=== PATIENT | male | born 1970 | race Caucasian/White ===

== ENCOUNTER 2023-10-23 17:23 | Inpatient (IN) | payer BC, MEDICAID, SELFPAY ==
[2023-10-23 17:26] VITALS: BP 132/85; PULSE 131; RESP 18; TEMP 36.2; O2SAT 97; BMI 26.5
--- NOTE | 2023-10-23 18:04 | EDS_ITS ---
HPI History of Present Illness Chief Complaint: ETOH Intox Narrative Narrative: 53-year-old male presents for detox from alcohol. Last drink was about an hour prior to arrival. He had his old employer bring him here. He states that he drinks as much as he can, whether be 1/5 of liquor or beer. He denies any suicidal ideation. He states his last detox was approximately 3 years ago. He drinks daily. He denies any somatic symptoms. No chest pain or shortness of breath, no nausea or vomiting. He states he talked to Fe with 180 and presents for detox from alcohol. PENDING SALE TO [facility] Home Medications NK 10/23/23 [History Last Taken Unknown] Allergy/AdvReac Type Severity Reaction Status Date / Time No Known Allergies Allergy Verified 10/23/23 17:27 ROS ROS ED ROS Narrative Constitutional: No fever, no chills. HEENT: No sore throat. No neck pain. No loss of vision. No rhinorrhea. Cardiovascular: No chest pain. No palpitations. No pedal edema. Respiratory: No cough, no shortness of breath. Abdominal: No abdominal pain. No nausea. No vomiting. Genitourinary: No dysuria. No hematuria. Musculoskeletal: No myalgias. No arthralgias. Neurologic: No headaches. No dizziness. No lightheadedness. Skin: Questionable psoriatic rash on the left arm/hand. No change in color. Psychiatric: No depression. No anxiety. Wants detox from alcohol. EXAM Physical Exam Narrative Exam Narrative: Afebrile. Vital signs noted. HEENT: Normocephalic. Atraumatic. PERRL, EOMI. Neck soft and supple. No point tenderness or step off. Cardiovascular: Positive tachycardia no murmurs, rubs, or gallops appreciated. Respiratory: No tachypnea. Lungs clear to auscultation bilaterally. Gastrointestinal: Abdomen soft, nontender, with normoactive bowel sounds. No rebound or guarding. Neurological: Awake. Alert. Nonfocal, nonlateralizing. Skin: No rash. Normal color. No pallor. No gooseflesh. Musculoskeletal: No pedal edema. Full range of motion extremities. Const Vital Signs: 10/23/23 17:26 10/23/23 18:25 Temperature 97.1 F L Temperature Source Temporal Pulse Rate 131 H 111 H Respiratory Rate 18 16 Blood Pressure 132/85 H 109/78 Blood Pressure Mean 100 88 Pulse Ox 97 94 Oxygen Delivery Method Room Air Room Air MDM MDM MDM Narrative Medical decision making narrative: I have low concern for acute alcohol withdrawal as his last drink was approximately an hour ago. Laboratory work will be obtained and he was placed on a diagnostic cardiac sonographer. He does not have any prior records which to review. I discussed the patient with Dr. Grubbs for admission for detox from alcohol. Disposition is admit in stable condition. I did review his initial labs that came back, and he has slightly elevated white count of 13.7 which I think is nonspecific, hemoglobin normal at 14.2, platelet count normal at 375. Blood alcohol is elevated to 96, hence I have lower concern for acute withdrawal. I reviewed his CMP, and his sodium is low at 130 with a chloride of 96, potassium normal at 3.5, BUN of 5 and creatinine normal at 0.76. Glucose appropriately elevated at 128 with a normal anion gap of 12. His urine for drugs of abuse is still pending but I feel he can be admitted to the general medical floor in stable condition. History & Record Review Discussion w/independent historian: Patient Additional record(s) reviewed:: No prior records Lab Data Attestation: I reviewed the patient's lab results. Labs: Laboratory Results - last 24 hr 10/23/23 18:05 WBC 13.7 H RBC 4.65 Hgb 14.2 Hct 40.1 MCV 86.2 MCH 30.5 MCHC 35.4 RDW Std Deviation 41.3 RDW Coeff of Alf 13.3 Plt Count 375 MPV 9.6 Immature Gran % (Auto) 0.200 Neut % (Auto) 67.4 Lymph % (Auto) 24.7 [place] % (Auto) 7.3 Eos % (Auto) 0.0 Baso % (Auto) 0.4 Absolute Neuts (auto) 9.2 H Absolute Lymphs (auto) 3.39 Nucleated RBC % 0 Sodium 130 L Potassium 3.5 Chloride 96 L Carbon Dioxide 22.0 Anion Gap 12 BUN 5 L Creatinine 0.76 Estim Creat Clear Calc 124.11 Est GFR (MDRD) Af Amer 138 Est GFR (MDRD) Non-Af 114 BUN/Creatinine Ratio 6.6 L Glucose 128 H Calcium 8.7 Total Bilirubin 0.50 AST 24 ALT 18 Alkaline Phosphatase 79 Total Protein 6.8 Albumin 3.7 Globulin 3.1 Albumin/Globulin Ratio 1.2 Ethyl Alcohol 296.0 Discharge Plan Dx/Rx/DC Orders Clinical Impression: Desire for detoxification, Alcohol dependence Disposition Disposition: Acute Care Hospital [facility]
[2023-10-23 18:13] LABS: Absolute Lymphocyte Count 3.39 X10^3/uL (0.83-4.51); Absolute Neutrophil Count 9.2 X10^3/uL (2.0-7.7); Basophil# 0.06 X10^3/uL; Basophil% 0.4 % (0-1); Hematocrit 40.1 % (40-54); Hemoglobin 14.2 g/dL (13.0-16.5); Lymphocyte # 3.39 X10^3/ul (0.83-4.51); Lymphocyte % 24.7 % (19-41); Mean Corp Hgb Conc 35.4 g/dL (32-36); Mean Corpuscular Hgb 30.5 pg (27.0-32.0); Mean Corpuscular Volume 86.2 fL (80-94); Mean Platelet Vol. 9.6 fl (6.2-12.0); Monocyte% 7.3 % (0-10); NRBC Flagged by Analyzer 0 % (0-5); Neutrophil # 9.22 X10^3/uL (2.7-7.7); Neutrophil % 67.4 % (47-70); Platelet Count 375 K/mm3 (150-450); RBC Distribution Width CV 13.3 % (11.6-14.6); RBC Distribution Width SD 41.3 fl (35.1-43.9); Red Blood Count 4.65 M/mm3 (4.6-6.2); White Blood Count 13.7 K/mm3 (4.4-11.0)
[2023-10-23 18:25] VITALS: BP 109/78; PULSE 111; RESP 16; O2SAT 94
[2023-10-23 18:32] LABS: ALB/GLOB Ratio 1.2 RATIO (0.9-2.4); AST(SGOT) 24 U/L (15-37); Alanine Aminotransfer ALT/SGPT 18 U/L (16-61); Albumin, Serum 3.7 g/dL (3.2-5.0); Alkaline Phosphatase 79 U/L (45-117); Anion Gap 12 (5-15); BUN 5 mg/dL (7-18); BUN/Creat Ratio 6.6 RATIO (10-20); Calcium,Total 8.7 mg/dL (8.5-10.1); Chloride 96 mmol/L (98-107); Creatinine, Serum 0.76 mg/dL (0.70-1.30); EST Glomerular Filtration Rate 114 mL/min (>60); Est Glom Filt Rate - Afr Amer 138 mL/min (>60); Estimated Creatinine Clearance 124.11 ml/min; Globulin 3.1 g/dL (2.2-4.2); Glucose 128 mg/dL (74-106); Potassium 3.5 mmol/L (3.5-5.1); Protein, Total 6.8 g/dL (6.4-8.2); Sodium Level 130 mmol/L (136-145)
--- NOTE | 2023-10-23 18:42 | HP.PCM.HOS_ITS ---
HPI - General General Date of Admission: 10/23/23 Date of Service: 10/23/23 Chief Complaint: Alcohol withdrawal detoxification HPI Narrative AUDREY ALCARAZ, is a 53 M who presents to the ED for detoxification. His last drink was about an hour before presentation. He says he drinks about 20-22 drinks daily depending on what type of alcohol he has around him. 2 packs a day of cigarette smoking. No other drug use. He has tried detoxification previously but failed. He has family lives in the area but does not remember the name at this time, cannot give the details as his phone battery has . COUNTS INCLUDE 234 BEDS AT THE [facility] Home Medications NK 10/23/23 [History Last Taken Unknown] Allergy/AdvReac Type Severity Reaction Status Date / Time No Known Allergies Allergy Verified 10/23/23 17:27 Social History Smoking Status: Current some day smoker tobacco type: cigarettes ROS ROS Narrative Patient is inebriated and last drink was 1 hour back. Review of Systems ROS Unobtainable: due to encephalopathy, due to endotracheal tube, due to mental condition, due to mental status and other Vital Signs Vital Signs Vital Signs: 10/23/23 17:26 10/23/23 18:25 Temperature 97.1 F L Temperature Source Temporal Pulse Rate 131 H 111 H Respiratory Rate 18 16 Blood Pressure 132/85 H 109/78 Blood Pressure Mean 100 88 Pulse Ox 97 94 Oxygen Delivery Method Room Air Room Air Weight Weight: 201 lb Body Mass Index (BMI) 26.5 Physical Exam Const alert and oriented x3 General Appearance: uncooperative HEENT normocephalic Neck no lymphadenopathy Resp normal respiratory effort Cardio regular rate and regular rhythm GI normal to inspection, nondistended, normoactive bowel sounds Extremity normal to inspection Neuro oriented x3 Results Medical Records Data Attestation: I reviewed the patient's medical records Lab / Micro Data Attestation: I reviewed the patient's lab results. 10/23/23 18:05 10/23/23 18:05 Labs: Laboratory Results - last 24 hr 10/23/23 18:05: WBC 13.7 H, RBC 4.65, Hgb 14.2, Hct 40.1, MCV 86.2, MCH 30.5, MCHC 35.4, RDW Std Deviation 41.3, RDW Coeff of Alf 13.3, Plt Count 375, MPV 9.6, Immature Gran % (Auto) 0.200, Neut % (Auto) 67.4, Lymph % (Auto) 24.7, [place] % (Auto) 7.3, Eos % (Auto) 0.0, Baso % (Auto) 0.4, Absolute Neuts (auto) 9.2 H, Absolute Lymphs (auto) 3.39, Nucleated RBC % 0, Sodium 130 L, Potassium 3.5, Chloride 96 L, Carbon Dioxide 22.0, Anion Gap 12, BUN 5 L, Creatinine 0.76, Estim Creat Clear Calc 124.11, Est GFR (MDRD) Af Amer 138, Est GFR (MDRD) Non-Af 114, BUN/Creatinine Ratio 6.6 L, Glucose 128 H, Calcium 8.7, Total Bilirubin 0.50, AST 24, ALT 18, Alkaline Phosphatase 79, Total Protein 6.8, Albumin 3.7, Globulin 3.1, Albumin/Globulin Ratio 1.2, Ethyl Alcohol 296.0 Assessment & Plan Assessment/Plan (1) Desire for detoxification: PLAN: Plan 53-year-old gentleman with history of prior alcohol use disorder presents to the ED for detoxification. He has no other past medical history not on any medications. 1. Alcohol detoxification: -Gabapentin 300 mg every 8 as needed, dicyclomine every 6 as needed, Vistaril as needed, loperamide every 4 as needed, trazodone 100 mg nightly as needed -Thiamine 100 mg p.o. daily tablet -Folic acid 1 mg p.o. daily -Ondansetron 8 mg as needed -Phenobarbital taper 2. Smoking: Nicotine patches 21 mg every 72 hours 3. DVT prophylaxis: Low risk, encourage mobilization while admitted.
[2023-10-23 18:49] VITALS: BP 113/96; PULSE 110; RESP 20; TEMP 36.4; O2SAT 97
[2023-10-23 19:06] LABS: Amphetamine Urine VISTA NEGATIVE (<1000 ng/mL); Barbiturate Urine VISTA NEGATIVE (< 200 ng/mL); Benzodiazepine Urine VISTA NEGATIVE (< 200 ng/mL); Cocaine Urine VISTA NEGATIVE (< 300 ng/mL); Ecstacy Urine VISTA NEGATIVE (< 500 ng/mL); Methadone Urine VISTA NEGATIVE (< 300 ng/mL); PCP Urine VISTA NEGATIVE (< 25 ng/mL); THC Urine VISTA NEGATIVE (< 50 ng/mL); Vista UDS pH Range 5
[2023-10-23 19:16] VITALS: BMI 19.4
[2023-10-23] MEDS: Phenobarbital 32.4 MG Tablet 64.8 MG PO ×2 (19:50→23:15)
[2023-10-23 19:51] VITALS: BP 105/76; PULSE 89; RESP 16; TEMP 37.1; O2SAT 97
[2023-10-23 20:30] VITALS: BP 129/80; PULSE 80; RESP 11; TEMP 36.8; O2SAT 98
[2023-10-24 02:30] VITALS: BP 134/82; PULSE 75; RESP 18; TEMP 37.1; O2SAT 99
[2023-10-24] MEDS: Phenobarbital 32.4 MG Tablet 64.8 MG PO ×5 (02:30→19:49)
[2023-10-24 06:53] LABS: Absolute Lymphocyte Count 1.93 X10^3/uL (0.83-4.51); Absolute Neutrophil Count 4.2 X10^3/uL (2.0-7.7); Basophil# 0.05 X10^3/uL; Basophil% 0.7 % (0-1); Eosinophil# 0.02 X10^3/uL; Eosinophils% 0.3 % (0-5); Hematocrit 39.8 % (40-54); Lymphocyte # 1.93 X10^3/ul (0.83-4.51); Lymphocyte % 27.3 % (19-41); Mean Corp Hgb Conc 35.2 g/dL (32-36); Mean Corpuscular Hgb 30.8 pg (27.0-32.0); Mean Corpuscular Volume 87.7 fL (80-94); Mean Platelet Vol. 9.9 fl (6.2-12.0); Monocyte# 0.83 X10^3/uL; Monocyte% 11.8 % (0-10); NRBC Flagged by Analyzer 0 % (0-5); Neutrophil # 4.22 X10^3/uL (2.7-7.7); Neutrophil % 59.8 % (47-70); Platelet Count 330 K/mm3 (150-450); RBC Distribution Width CV 13.6 % (11.6-14.6); RBC Distribution Width SD 43.5 fl (35.1-43.9); Red Blood Count 4.54 M/mm3 (4.6-6.2); White Blood Count 7.1 K/mm3 (4.4-11.0)
[2023-10-24 07:25] LABS: ALB/GLOB Ratio 1.1 RATIO (0.9-2.4); AST(SGOT) 25 U/L (15-37); Alanine Aminotransfer ALT/SGPT 18 U/L (16-61); Albumin, Serum 3.4 g/dL (3.2-5.0); Alkaline Phosphatase 76 U/L (45-117); Anion Gap 4 (5-15); BUN 6 mg/dL (7-18); BUN/Creat Ratio 6.7 RATIO (10-20); Calcium,Total 8.9 mg/dL (8.5-10.1); Chloride 102 mmol/L (98-107); EST Glomerular Filtration Rate 93 mL/min (>60); Est Glom Filt Rate - Afr Amer 113 mL/min (>60); Estimated Creatinine Clearance 87.58 ml/min; Globulin 3.2 g/dL (2.2-4.2); Glucose 107 mg/dL (74-106); Potassium 4.8 mmol/L (3.5-5.1); Protein, Total 6.6 g/dL (6.4-8.2); Sodium Level 136 mmol/L (136-145)
[2023-10-24] MEDS: Folic Acid 1 MG Tablet PO (07:57)
[2023-10-24] MEDS: Thiamine Hydrochloride 100 MG Tablet PO (07:57)
[2023-10-24 10:00] VITALS: BP 139/70; PULSE 80; RESP 18; TEMP 36.7; O2SAT 98
[2023-10-24] MEDS: Gabapentin 300 MG Capsule PO (12:36)
[2023-10-24] MEDS: hydrOXYzine PAM 25 MG Capsule 50 MG PO (12:36)
--- NOTE | 2023-10-24 12:38 | PN.HOSP_ITS ---
Subjective Subjective Patient was seen and examined today, he does not appear to be anxious or tremorous. He was admitted yesterday into [facility]. Objective Data Objective Data Vital Signs: Vital Signs Temp Pulse Resp BP Pulse Ox O2 Del Method 98.1 F 80 18 139/70 H 98 Room Air 10/24/23 10:00 10/24/23 10:00 10/24/23 10:00 10/24/23 10:00 10/24/23 10:00 10/24/23 10:00 Oxygen Delivery Method Room Air Weight: 66.769 kg Body Mass Index (BMI) 19.4 Intake & Output: Intake and Output for Last 24 Hours 10/22/23 10/23/23 10/24/23 23:59 23:59 23:59 Intake Total 120 / 120 Balance 120 / 120 Lab / Micro Data 10/24/23 06:03 10/24/23 06:03 Labs: Laboratory Results - last 24 hr 10/23/23 18:05: WBC 13.7 H, RBC 4.65, Hgb 14.2, Hct 40.1, MCV 86.2, MCH 30.5, MCHC 35.4, RDW Std Deviation 41.3, RDW Coeff of Alf 13.3, Plt Count 375, MPV 9.6, Immature Gran % (Auto) 0.200, Neut % (Auto) 67.4, Lymph % (Auto) 24.7, [place] % (Auto) 7.3, Eos % (Auto) 0.0, Baso % (Auto) 0.4, Absolute Neuts (auto) 9.2 H, Absolute Lymphs (auto) 3.39, Nucleated RBC % 0, Sodium 130 L, Potassium 3.5, Chloride 96 L, Carbon Dioxide 22.0, Anion Gap 12, BUN 5 L, Creatinine 0.76, Estim Creat Clear Calc 124.11, Est GFR (MDRD) Af Amer 138, Est GFR (MDRD) Non-Af 114, BUN/Creatinine Ratio 6.6 L, Glucose 128 H, Calcium 8.7, Total Bilirubin 0.50, AST 24, ALT 18, Alkaline Phosphatase 79, Total Protein 6.8, Albumin 3.7, Globulin 3.1, Albumin/Globulin Ratio 1.2, Ethyl Alcohol 296.0 10/23/23 18:36: Urine Opiates Screen NEGATIVE, Urine Methadone Screen NEGATIVE, Ur Barbiturates Screen NEGATIVE, Ur Phencyclidine Scrn NEGATIVE, Ur Amphetamines Screen NEGATIVE, MDMA (Ecstasy) Screen NEGATIVE, U Benzodiazepines Scrn NEGATIV E, Urine Cocaine Screen NEGATIVE, U Cannabinoids Screen NEGATIVE, Ur Drug Screen Comment 10/24/23 06:03: WBC 7.1, RBC 4.54 L, Hgb 14.0, Hct 39.8 L, MCV 87.7, MCH 30.8, MCHC 35.2, RDW Std Deviation 43.5, RDW Coeff of Alf 13.6, Plt Count 330, MPV 9.9, Immature Gran % (Auto) 0.100, Neut % (Auto) 59.8, Lymph % (Auto) 27.3, [place] % (Auto) 11.8 H, Eos % (Auto) 0.3, Baso % (Auto) 0.7, Absolute Neuts (auto) 4.2, Absolute Lymphs (auto) 1.93, Nucleated RBC % 0, Sodium 136, Potassium 4.8, Chloride 102, Carbon Dioxide 30.0, Anion Gap 4 L, BUN 6 L, Creatinine 0.90, E stim Creat Clear Calc 87.58, Est GFR (MDRD) Af Amer 113, Est GFR (MDRD) Non-Af 93, BUN/Creatinine Ratio 6.7 L, Glucose 107 H, Calcium 8.9, Total Bilirubin 0.90, AST 25, ALT 18, Alkaline Phosphatase 76, Total Protein 6.6, Albumin 3.4, Globulin 3.2, Albumin/Globulin Ratio 1.1 Physical Exam Const alert, oriented x3, no apparent distress and healthy appearing General Appearance: cooperative, well kempt and well developed Orientation / Consciousness: awake, oriented to person, oriented to place and oriented to time HEENT normocephalic, head/scalp atraumatic and moist oral mucous membranes Eyes PERRL, EOMs intact bilaterally and conjunctivae normal Neck supple, no JVD, thyroid normal and no carotid bruits General: trachea midline Resp normal respiratory effort, no retractions, no use of accessory muscles and clear to auscultation bilaterally Auscultation: Negative for rales, rhonchi or wheezes Cardio regular rate, regular rhythm, S1 normal heart sound, S2 normal heart sound, no murmurs, no rub and no gallops GI normal to inspection, nondistended, normoactive bowel sounds, soft to palpation, non-tender and non-distended Extremity no clubbing, cyanosis or edema Skin no rashes or lesions noted General Skin Exam: no breakdown Neuro oriented x3, CN's II-XII intact bilaterally, no focal motor deficits and no sensory deficits noted Sensorium / Orientation: awake and alert Speech: speech normal Psych affect normal Assessment & Plan Assessment/Plan (1) Alcohol dependence: PLAN: Plan 1. Acute alcohol withdrawal-patient will remain on his present medications, he shows no signs of DTs at this time #2 chronic alcoholism-complicates care, management, recovery, and prognosis Total clinical time spent by myself addressing the patient's medical issues, reviewing all of his data, and collaborating with patient's care team: 25 minutes Charges/Coding Visit Charges Inpatient E&M: 17184 Subs Hosp L1
[2023-10-24 16:36] VITALS: BP 129/86; PULSE 73; RESP 18; TEMP 36.3; O2SAT 98
[2023-10-24 20:30] VITALS: BP 135/92; PULSE 75; RESP 18; TEMP 36.4; O2SAT 99
[2023-10-25] MEDS: Phenobarbital 32.4 MG Tablet 64.8 MG PO ×7 (00:05→23:55)
[2023-10-25 02:30] VITALS: BP 132/90; PULSE 79; RESP 18; TEMP 36.7; O2SAT 98
[2023-10-25] MEDS: Thiamine Hydrochloride 100 MG Tablet PO (08:18)
[2023-10-25] MEDS: Folic Acid 1 MG Tablet PO (08:18)
--- NOTE | 2023-10-25 08:23 | PN.HOSP_ITS ---
Reason for Visit Reason for Visit: Diagnoses Alcohol dependence, uncomplicated (10/23/23) Objective Data Objective Data Vital Signs: Vital Signs Temp Pulse Resp BP Pulse Ox O2 Del Method 36.7 C 79 18 132/90 H 98 Room Air 10/25/23 02:30 10/25/23 02:30 10/25/23 02:30 10/25/23 02:30 10/25/23 02:30 10/25/23 02:30 Oxygen Delivery Method Room Air Weight: 66.769 kg Body Mass Index (BMI) 19.4 Intake & Output: Intake and Output for Last 24 Hours 10/23/23 10/24/23 10/25/23 23:59 23:59 23:59 Intake Total 2270 / 2570 650 / 650 Balance 2270 / 2570 650 / 650 Lab / Micro Data 10/24/23 06:03 10/24/23 06:03 Assessment & Plan Assessment/Plan (1) Alcohol dependence: PLAN: Plan Acute alcohol withdrawal * Continue with Tylenol. Thiamine and folate. * Addiction medicine to see and facilitate outpatient program. chronic alcoholism-complicates care, management, recovery, and prognosis
--- NOTE | 2023-10-25 08:23 | PCM.PN.HOSP ---
Reason for Visit Reason for Visit: Diagnoses Alcohol dependence, uncomplicated (10/23/23) Subjective Subjective No events. Objective Data Objective Data Vital Signs: Vital Signs Temp Pulse Resp BP Pulse Ox O2 Del Method 36.7 C 79 18 132/90 H 98 Room Air 10/25/23 02:30 10/25/23 02:30 10/25/23 02:30 10/25/23 02:30 10/25/23 02:30 10/25/23 02:30 Oxygen Delivery Method Room Air Weight: 66.769 kg Body Mass Index (BMI) 19.4 Intake & Output: Intake and Output for Last 24 Hours 10/23/23 10/24/23 10/25/23 23:59 23:59 23:59 Intake Total 2270 / 2570 650 / 650 Balance 2270 / 2570 650 / 650 Lab / Micro Data 10/24/23 06:03 10/24/23 06:03 Physical Exam Const alert and no apparent distress HEENT head/scalp atraumatic Cardio regular rate and regular rhythm Neuro Sensorium / Orientation: awake and alert Assessment & Plan Assessment/Plan (1) Alcohol dependence: PLAN: Plan Acute alcohol withdrawal Continue with Tylenol. Thiamine and folate. pt to follow up Sergio Whyte in [place] on 10/25. chronic alcoholism-complicates care, management, recovery, and prognosis Charges/Coding Visit Charges Inpatient E&M: 84202 Subs Hosp L1
[2023-10-25 09:24] VITALS: BP 162/96; PULSE 81; RESP 18; TEMP 36.8; O2SAT 98
--- NOTE | 2023-10-25 10:37 | ADDICTION ---
Addiction therapist met with patient to go over RAMP assessments. Pt was A&Ox4. He reports he has been drink heavy for about 25 years. He reports that he is homeless however has family that will help him once he completes a treatment program. Pt has been approved for the [facility] in [facility]. They will transport him tomorrow morning.
[2023-10-25] MEDS: hydrOXYzine PAM 25 MG Capsule 50 MG PO ×2 (15:34→19:38)
[2023-10-25] MEDS: Gabapentin 300 MG Capsule PO (15:35)
[2023-10-25 15:36] VITALS: BP 147/97; PULSE 84; RESP 18; TEMP 37.2; O2SAT 98
[2023-10-25 15:38] VITALS: BP 147/97; PULSE 84; RESP 18; TEMP 37.2; O2SAT 98
--- NOTE | 2023-10-25 15:45 | CHAPLAIN ---
Type of Pastoral Visit _x__ Initial Visit ___ Follow-up Visit ___ On-call Visit ___ General Patient Visit ___ Spiritual Assessment ___ Family Conference ___ Bereavement ___ Rapid Response ___ Code Blue ___ Other (describe below) Pastoral Care Referral From _x__ Patient ___ Family ___ Nurse ___ Physician ___ Button Buttonhole Marker ___ Cold Molding Press Operator ___ Other (describe below) Sacrament/Intervention ___ Active listening ___ Anointing ___ Sabianism ___ Bereavement ___ Communion ___ Kiesha exploration ___ ___ Life review ___ Prayer ___ Reconciliation ___ Sacrament of Sick _x__ Supportive presence ___ Wedding ___ Other (describe below) Pastoral Comments patient is awake and yet somewhat slow to respond to questions; pt admits that he is not clear minded at this time and doesn't know how to answer questions or what he is feeling; agreed to come back tomorrow to make visit
[2023-10-25 19:26] VITALS: BP 129/88; PULSE 85; RESP 18; TEMP 36.9; O2SAT 98
[2023-10-25] MEDS: 0.9% Saline Lock 10 ML Syringe IV (19:38)
[2023-10-25 23:53] VITALS: BP 127/93; PULSE 74; RESP 16; TEMP 37.1; O2SAT 97
[2023-10-26 03:36] VITALS: BP 129/94; PULSE 78; RESP 16; TEMP 37.1; O2SAT 95
[2023-10-26] MEDS: Phenobarbital 32.4 MG Tablet 64.8 MG PO ×2 (03:39→09:47)
[2023-10-26] MEDS: Thiamine Hydrochloride 100 MG Tablet PO (07:58)
[2023-10-26] MEDS: Folic Acid 1 MG Tablet PO (07:58)
--- NOTE | 2023-10-26 08:11 | DS.PCM_ITS ---
Providers Date of Admission: 10/23/23 Primary Care Physician: Mindy Primary Care Phys Reason For Visit: ALCOHOL WITHDRAWAL Diagnosis Discharge Diagnosis (1) Alcohol dependence: Status: Acute Code(s): F10.20 - Alcohol dependence, uncomplicated Plan Acute alcohol withdrawal * Continue with Tylenol. Thiamine and folate. * pt to follow up Sergio Whyte in [facility] on 10/25. chronic alcoholism-complicates care, management, recovery, and prognosis Medications at Discharge Home Medications multivitamin (Daily Multi-Vitamin tablet) 1 tab PO DAILY #30 tabs 10/26/23 Physical Exam Narrative Up in bed. Non-toxic. Afebrile. Weight / BMI Weight Weight: 66.769 kg Body Mass Index (BMI) 19.4 ABG / Lab / Microbiology Data 10/24/23 06:03 10/24/23 06:03 D/C Instructions Discharge Diet: No restrictions Meaningful Use Info Meaningful Use Diagnoses (Choose all that apply): None applicable Discharge Plan Admission Admit Date/Time: 10/23/23 18:45 Primary Reason for Your Visit: alcohol withdrawal. Attending Provider: Pepe Mae Primary Care Provider: Care Physician,No Primary Consulting Providers: Antonia Grubbs; Xander Betancourt Discharge Orders/Prescriptions Prescriptions: New multivitamin [Daily Multi-Vitamin] Tablet 1 tab PO DAILY Qty: 30 0RF Referrals / Follow Up: Care Physician,No Primary [Primary Care Provider] - Disposition Disposition (needs filled in before D/C Order can be placed): Home, Self Care
[2023-10-26 08:30] VITALS: BP 131/91; PULSE 74; RESP 18; TEMP 37.2; O2SAT 98
--- NOTE | 2023-10-26 09:58 | PHA.DC_ITS ---
Pharmacy [facility] has performed discharge medication reconciliation and counseling for this patient. 1. MULTIVITAMIN 1T PO DAILY The patient's discharge medication list was reviewed for discrepancies and discrepancies were resolved. The patient was counseled on the following discharge medications and changes in medications for homegoing were reviewed. The Reason for Use, instructions for use, and potential side effects were reviewed for all new medications. The patient's questions regarding all of their medications were answered. The patient was able to verbally demonstrate an understanding of their discharge medications. Medications at Discharge Home Medications multivitamin (Daily Multi-Vitamin tablet) 1 tab PO DAILY #30 tabs 10/26/23
[2023-10-26 11:45] VITALS: BP 134/94; PULSE 70; RESP 18; TEMP 36.7; O2SAT 95
== END 2023-10-26 11:53 | disposition home or self-care (01) | DRG 897 ==
LOC: ED 18:22 → MS3 18:50
PROVIDERS: Admitting Provider Internal Medicine; Emergency Provider Emergency Medicine
DX: F10.239 Alcohol dependence with withdrawal, unspecified (principal); F17.210 Nicotine dependence, cigarettes, uncomplicated; Y90.8 Blood alcohol level of 240 mg/100 ml or more
CPT/HCPCS: 36415; 80048; 80053; 80307; 80320; 85025; 97802; 99285; A4216; G0480

== ENCOUNTER 2024-09-17 19:37 | Observation (INO) | payer MEDICAID, SELFPAY ==
[2024-09-17 19:38] VITALS: BP 120/70; PULSE 98; RESP 16; TEMP 36.8; O2SAT 98; BMI 26.0
--- NOTE | 2024-09-17 20:17 | EX.ED.SAOD ---
HPI History of Present Illness Chief Complaint: ETOH Intox Detail of Chief Complaint: Requesting alcohol detox. Informant: patient and friend Onset/Context/Timing Onset: Month(s) Context: Gradual Onset Timing: Continuous Current Severity: Moderate Maximum Severity: Moderate Associated Symptoms Associated Symptoms: Positive for vomiting* and diarrhea* Narrative Narrative: 54-year-old male history of alcohol abuse and states he is diabetic. States he drinks as much licorice and get his hands on per day. He went through detox here several months ago. States he has been drinking heavily. His last drink was actually on the way to the hospital. Requesting detox. Prior similar symptoms: Yes Recent Illness/Hospitalization: No PFSH PFSH Medical History (Updated 09/17/24 @ 21:[address] Nasrin Tillman MD) Salivary duct stones Cocaine use Tobacco use HTN (hypertension) Alcohol dependence Home Medications ?Medication ?Instructions ?Recorded ?Last Taken ?Type NK 09/17/24 Unknown History Allergy/AdvReac Type Severity Reaction Status Date / Time No Known Allergies Allergy Verified 09/17/24 19:38 Family History (Updated 09/17/24 @ 21:[address] Nasrin Tillman MD) Mother Heart disease Diabetes Father Alcohol abuse Heroin abuse Surgical History (Updated 09/17/24 @ 21:[address] Nasrin Tillman MD) History of oral surgery History of tonsillectomy and adenoidectomy Hx of appendectomy History of shoulder surgery Social History (Updated 09/17/24 @ 21:[address] Nasrin Tillman MD) household members: none housing: homeless Smoking Status: Current every day smoker tobacco type: cigarettes Smoking packs per day: 1 Smoking cigarettes per day: 20.0 alcohol intake: current alcohol intake frequency: 3 or more drinks per day Alcohol type: hard liquor details: 07/16 vodka daily. substance use type: crack/cocaine ROS ROS ED ROS Narrative Nausea and vomiting. Diarrhea. Constitutional Constitutional ED: Denies chills or fever(s) Eyes Eyes: Denies blurry vision ENT ENT ED: Denies ear pain Cardiovascular Cardiovascular: Denies chest pain Gastrointestinal Gastrointestinal: Reports diarrhea, nausea and vomiting; Denies abdominal pain, constipation or melena Genitourinary Genitourinary ED: Denies dysuria Musculoskeletal Musculoskeletal: Denies arthralgias Integumentary Denies abscess Neurologic Neurologic: Denies headache(s) Psychiatric Psychiatric: Denies anxiety Endocrine Endocrinology: Denies cold intolerance Hematologic/Lymphatic Hematologic/Lymphatic: Denies easy bleeding, easy bruising or lymphadenopathy Allergic/Immunologic Allergic/Immunologic ED: Denies mouth swelling, tongue swelling or urticaria EXAM Physical Exam Narrative Exam Narrative: 54-year-old male sitting upright in bed. Vital signs are stable afebrile. Male friend present in the room. Patient does not look septic or toxic. He appears intoxicated. H EENT exam pupils round reactive light. Moist mucous membranes. Slurred speech consistent with intoxication. No trauma to his face or head. Neck nontender. Lungs clear. Heart regular rhythm rate about 95 no murmur. Chest wall ribs nontender. Abdomen soft nontender. Moving all 4 extremities. Nontender no deformity. Normal resistance welder strength. Normal dorsi plantarflexion. Back nontender. Neurologically is awake and alert. Answer questions following commands. He is intoxicated. Const Vital Signs: 09/17/24 19:38 Temperature 98.2 F Temperature Source Oral Pulse Rate 98 Respiratory Rate 16 Blood Pressure 120/70 Blood Pressure Mean 86 Pulse Ox 98 Oxygen Delivery Method Room Air Positive well nourished and well developed; Negative for obese, cachectic, contractures or unkempt General Appearance ED: well developed and NAD; Negative for unkempt, cachectic, contractures or pallor Nutritional Appearance: Negative for cachectic or obese HEENT Reports moist mucous membranes atraumatic; Negative for trauma or tenderness Eyes EOMs intact bilaterally General Eye ED: Negative for pale conjunctiva Neck no lymphadenopathy, supple and no JVD Lymph Lymphatic: no lymphadenopathy noted; Negative for lymphadenopathy Chest Wall inspection of chest normal and palpation of chest normal Resp normal respiratory effort and clear to auscultation bilaterally Effort and Inspection: Negative for retractions Auscultation: Negative for rales, rhonchi, wheezes or diminished lung sounds Cardio regular rate, regular rhythm, S1 normal heart sound, S2 normal heart sound and no murmurs Rate: Negative for bradycardia or tachycardic Rhythm: Negative for abnormal rhythm GI soft to palpation, non-tender, non-distended and no masses Palpation: Negative for tender, guarding, rigid, hepatomegaly or splenomegaly Back/Spine no CVA tenderness General Back: Negative for CVA tenderness Cervical Spine: Negative for cervical spine tenderness and Negative for other Thoracic Spine / Upper Back: Negative for thoracic spinal tenderness Lumbar Spine / Lower Back: Negative for lumbar spinal tenderness Coccyx: Negative for swelling Extremity General Extremety ED: Negative for edema or tenderness General Extremity: Negative for edema Neuro oriented x3 and CN's II-XII intact bilaterally Neuro Narrative: Alcohol intoxication. Mildly slurred speech but audible and understandable. Sensorium / Orientation: alert, oriented to person, oriented to place, oriented to time and stuporous; Negative for confused or lethargic Speech: Negative for speech normal Motor Exam: strength 5/5 throughout Psych mental status grossly normal and thought process normal Appearance: Negative for unkempt Attitude: No belligerent, No agitated and No aggressive Mood & Affect: Negative for depressed, anxious or tearful Skin General Skin Exam: Negative for jaundice or pallor Lesions: no lesions Rashes: no rashes Trauma: Negative for abrasion or laceration MDM MDM MDM Narrative Medical decision making narrative: 54-year-old male acute alcohol intoxication requesting detox. Screening labs are being obtained. He will be admitted for detox. History & Record Review Discussion w/independent historian: Friend Additional record(s) reviewed:: Prior inpatient record, Prior outpatient record, Prior ED visit and Prior labs Lab Data Attestation: I reviewed the patient's lab results. Lab results narrative: CBC shows normal white count 7.8. H&H of 14.9 and 41. Platelets 306. Urine tox screen negative. Serum alcohol level is elevated 363. Electrolytes show gap of 15. Normal BUN and creatinine. Glucose 79. Liver enzymes normal. Labs: Laboratory Results - last 24 hr 09/17/24 20:18 WBC 7.8 RBC 4.48 L Hgb 14.9 Hct 41.2 MCV 92.0 MCH 33.3 H MCHC 36.2 H RDW Std Deviation 54.5 H RDW Coeff of Alf 16.2 H Plt Count 306 MPV 8.9 Immature Gran % (Auto) 0.500 Neut % (Auto) 52.2 Lymph % (Auto) 38.3 [place] % (Auto) 7.6 Eos % (Auto) 0.6 Baso % (Auto) 0.8 Absolute Neuts (auto) 4.1 Absolute Lymphs (auto) 2.99 Nucleated RBC % 0 Sodium 139 Potassium 3.9 Chloride 105 Carbon Dioxide 19.4 L Anion Gap 15 BUN 7 Creatinine 0.79 Estim Creat Clear Calc 118.00 Est GFR (MDRD) Non-Af 104 BUN/Creatinine Ratio 9.4 L Glucose 79 Calcium 8.4 Phosphorus 3.0 Magnesium 2.0 Total Bilirubin < 0.15 AST 32 ALT 16 Alkaline Phosphatase 65 Total Protein 6.4 Albumin 4.0 Globulin 2.4 Albumin/Globulin Ratio 1.6 Urine Opiates Screen NEGATIVE U Buprenorphine Qual NEGATIVE Ur Oxycodone Screen NEGATIVE Urine Methadone Screen NEGATIVE Urine Fentanyl Screen NEGATIVE Ur Barbiturates Screen NEGATIVE Ur Phencyclidine Scrn NEGATIVE Ur Amphetamines Screen NEGATIVE U Benzodiazepines Scrn NEGATIVE Urine Cocaine Screen NEGATIVE U Cannabinoids Screen NEGATIVE Ethyl Alcohol 363.0 H* Discharge Plan Dx/Rx/DC Orders Clinical Impression: Alcohol abuse, Acute alcohol intoxication, Admitted to alcohol detoxification center Disposition Disposition: [facility]
[2024-09-17 20:26] LABS: Absolute Lymphocyte Count 2.99 X10^3/uL (0.83-4.51); Absolute Neutrophil Count 4.1 X10^3/uL (2.0-7.7); Basophil# 0.06 X10^3/uL; Basophil% 0.8 % (0-1); Eosinophil# 0.05 X10^3/uL; Eosinophils% 0.6 % (0-5); Hematocrit 41.2 % (40-54); Hemoglobin 14.9 g/dL (13.0-16.5); Lymphocyte # 2.99 X10^3/ul (0.83-4.51); Lymphocyte % 38.3 % (19-41); Mean Corp Hgb Conc 36.2 g/dL (32-36); Mean Corpuscular Hgb 33.3 pg (27.0-32.0); Mean Platelet Vol. 8.9 fl (6.2-12.0); Monocyte# 0.59 X10^3/uL; Monocyte% 7.6 % (0-10); NRBC Flagged by Analyzer 0 % (0-5); Neutrophil # 4.07 X10^3/uL (2.7-7.7); Neutrophil % 52.2 % (47-70); Platelet Count 306 K/mm3 (150-450); RBC Distribution Width CV 16.2 % (11.6-14.6); RBC Distribution Width SD 54.5 fl (35.1-43.9); Red Blood Count 4.48 M/mm3 (4.6-6.2); White Blood Count 7.8 K/mm3 (4.4-11.0)
[2024-09-17 20:44] LABS: Amphetamine Urine NEGATIVE (<1000 ng/mL); Barbiturate Urine NEGATIVE (< 200 ng/mL); Benzodiazepine Urine NEGATIVE (< 200 ng/mL); Buprenorphine Urine NEGATIVE (< 200 ng/mL); Cocaine Urine NEGATIVE (< 300 ng/mL); Fentanyl, Urine NEGATIVE; Methadone Urine NEGATIVE (< 300 ng/mL); Opiates Urine NEGATIVE (< 300 ng/mL); Oxycodone, Urine NEGATIVE (< 100 ng/mL); PCP Urine NEGATIVE (< 25 ng/mL); THC Urine NEGATIVE (< 50 ng/mL)
[2024-09-17 21:14] LABS: ALB/GLOB Ratio 1.6 RATIO (0.9-2.4); AST(SGOT) 32 U/L (<=37); Alanine Aminotransfer ALT/SGPT 16 U/L (<=46); Alkaline Phosphatase 65 U/L (40-129); Anion Gap 15 (5-15); BUN 7 mg/dL (4-19); BUN/Creat Ratio 9.4 RATIO (10-20); Calcium,Total 8.4 mg/dL (7.6-11.0); Carbon Dioxide 19.4 mmol/L (21.0-32.0); Chloride 105 mmol/L (98-108); Creatinine, Serum 0.79 mg/dL (0.70-1.20); EST Glomerular Filtration Rate 104 (>60); Globulin 2.4 g/dL (2.2-4.2); Glucose 79 mg/dL (70-99); Potassium 3.9 mmol/L (3.3-5.1); Protein, Total 6.4 g/dL (5.9-8.4); Sodium Level 139 mmol/L (133-145); Total Bilirubin < 0.15 mg/dL (0.00-1.30)
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
--- NOTE | 2024-09-17 21:20 | RAD_ITS ---
PROCEDURE: Left shoulder radiographs REASON FOR EXAM: Pain, trauma TECHNIQUE: Five views of the left shoulder COMPARISON: None FINDINGS: See impression RAD/Shoulder min 2 Views IMPRESSION: Subacute/chronic fracture deformity of the humeral neck with intact lateral anton te/screw fixation hardware. No definite acute displaced fracture. No alignment is maintained. Minimal glenohumeral and acro mioclavicular joint osteoarthritis. Reading Location: [facility]
--- NOTE | 2024-09-17 21:29 | CT_ITS ---
PROCEDURE: CT facial bones without IV contrast REASON FOR EXAM: Pain, trauma TECHNIQUE: Multiple contiguous axial images through the facial bones were obtained without the administration of intravenous contrast. Two-dimensional coronal and sagittal reformatted images were reconstructed. Low-dose imaging technique was utilized. COMPARISON: None. FINDINGS: Nasal bones and septum are intact. Chronic appearing fracture deformity of the inferior wall of the right orbit without surrounding inflammation. Orbital confines are otherwise intact. Maxillary and frontal sinuses are intact. No significant opacification of the paranasal sinuses. Zygomatic arches and pterygoid plates are intact. Mandible is intact. Periodontal disease. Temporal bones are intact. No fluid in the mastoid air cells or middle ear cavities. Globes are intact. Facial soft tissues are without significant abnormality. Bilateral carotid artery calcifications. CT/Sinus/Facial Bone IMPRESSION: 1. No acute facial bone fracture. 2. 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 3. Periodontal disease. One or more dose reduction techniques were used (e.g., Automated exposure contr ol, adjustment of the mA and/or kV according to patient size, use of iterative reconstruction technique). Reading Location: [facility]
[2024-09-17 21:48] VITALS: BP 122/74; PULSE 91; RESP 18; O2SAT 98
[2024-09-17 22:16] VITALS: BP 128/96; PULSE 77; RESP 16; TEMP 36.8; O2SAT 95; BMI 24.5
[2024-09-17] MEDS: hydrOXYzine PAM 25 MG Capsule 50 MG PO (22:45)
[2024-09-17] MEDS: Lactated Ringers 1,000 ML 125 ML IV (22:45)
[2024-09-17] MEDS: Loperamide 2 MG Capsule PO (22:45)
[2024-09-17] MEDS: Phenobarbital 32.4 MG Tablet 64.8 MG PO (22:45)
[2024-09-17] MEDS: Gabapentin 300 MG Capsule PO (22:46)
[2024-09-17] MEDS: Dicyclomine 10 MG Capsule 20 MG PO (22:46)
[2024-09-17] MEDS: traZODone 100 MG Tablet PO (22:46)
[2024-09-17] MEDS: 0.9% Saline Lock 10 ML Syringe IV (22:49)
[2024-09-18] VITALS (7 sets, daily range): BP systolic 107–145; BP diastolic 63–107; PULSE 60–88; RESP 16–18; TEMP 36.6–37.2; O2SAT 93–100
[2024-09-18] MEDS: Phenobarbital 32.4 MG Tablet 64.8 MG PO ×6 (02:30→21:58)
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
[2024-09-18] MEDS: Folic Acid 1 MG Tablet PO (10:18)
[2024-09-18] MEDS: Thiamine Hydrochloride 100 MG Tablet PO (10:18)
[2024-09-18] MEDS: Multivitamins,Ther W-Minerals Tablet 1 TABLET PO (10:18)
--- NOTE | 2024-09-18 14:13 | ADDICTION ---
clinician met with client to discuss tx options. client presented as tired and somewhat sick. he reported some tremors. clinician facilitated discussion regarding tx plans upon discharge. client verbalized a need to be in residential. He stated that he prefers a 60 day program due to previous 30 day tx episodes that didn't work. client stated that he would like to attend tx outside of [facility]. clinician briefly discussed residential tx options in this area. Client presented as somewhat ambivalent towards making a commitment as to where he would like to go. clinician will follow up with client on 09/19/24 to further discuss discharge plans.
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
[2024-09-18] MEDS: Gabapentin 300 MG Capsule PO (18:08)
[2024-09-18] MEDS: Ibuprofen 600 MG Tablet PO (18:08)
[2024-09-18] MEDS: traZODone 100 MG Tablet PO (21:58)
[2024-09-19 02:30] VITALS: BP 150/94; PULSE 69; RESP 16; TEMP 36.4; O2SAT 99
[2024-09-19] MEDS: Phenobarbital 32.4 MG Tablet 64.8 MG PO ×6 (02:35→22:15)
[2024-09-19] MEDS: Acetaminophen 325 MG Tablet 650 MG PO (02:46)
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
--- NOTE | 2024-09-19 09:25 | ADDICTION ---
clinician met with client to continue discussion of discharge planning. client would like residential (60 day) tx. clinician faciliated client signing anya for [facility] due to him wanting to remain around this area. clinican will coordinate care with [facility] residential staff for screening and possible admittance.
[2024-09-19 10:05] VITALS: O2SAT 99
[2024-09-19 10:24] VITALS: BP 121/83; PULSE 77; RESP 18; TEMP 36.6; O2SAT 98
[2024-09-19] MEDS: Folic Acid 1 MG Tablet PO (10:37)
[2024-09-19] MEDS: Multivitamins,Ther W-Minerals Tablet 1 TABLET PO (10:37)
[2024-09-19] MEDS: Thiamine Hydrochloride 100 MG Tablet PO (10:37)
[2024-09-19] MEDS: Ibuprofen 600 MG Tablet PO (10:39)
--- NOTE | 2024-09-19 13:04 | CASEMGMT ---
Social Work- SW met with pt to conduct SDOH assessment. SW introduced self and role; pt agreeable to meeting. Pt reports that he has been living with his girlfriend in [place]. In June, pt had shoulder surgery in [place] with Dr Butler. Pt then from girlfriend and came to [place] to stay with friends. Pt has SNAP card. 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 Pt has applied for SSD. Pt utilizes [facility] and friends for transport. Pt has been staying with friends for three months. Pt is interested in discharge to inpatient rehab through . SW provided PCP list, Jennifer Castillo clinic information, [facility], pantry boxes, people to people, shelters, housing supports, [facility], [facility], [facility], [facility]. Pt reports no other needs at this time. IRA Barton
[2024-09-19 14:16] VITALS: BP 151/96; PULSE 77; RESP 18; TEMP 36.6; O2SAT 98
[2024-09-19] MEDS: LORazepam 1 MG Tablet 2 MG PO (14:24)
[2024-09-19 20:15] VITALS: BP 141/98; PULSE 81; RESP 18; TEMP 36.6; O2SAT 95
[2024-09-19] MEDS: Gabapentin 300 MG Capsule PO (20:31)
[2024-09-20] MEDS: Phenobarbital 32.4 MG Tablet 64.8 MG PO ×2 (03:25→06:56)
[2024-09-20 03:26] VITALS: BP 142/90; PULSE 71; RESP 18; TEMP 36.4; O2SAT 97
[2024-09-20 08:00] VITALS: O2SAT 99
[2024-09-20 08:59] VITALS: BP 164/112; PULSE 72; RESP 18; TEMP 36.4; O2SAT 99
[2024-09-20] MEDS: Multivitamins,Ther W-Minerals Tablet 1 TABLET PO (09:10)
[2024-09-20] MEDS: Folic Acid 1 MG Tablet PO (09:10)
[2024-09-20] MEDS: Thiamine Hydrochloride 100 MG Tablet PO (09:10)
[2024-09-20 09:11] VITALS: BP 164/112; PULSE 74
[2024-09-20] MEDS: hydrALAZINE 20 MG/ML Vial 10 MG IV (09:11)
[2024-09-20] MEDS: Ibuprofen 600 MG Tablet PO (09:11)
[2024-09-20] MEDS: 0.9% Saline Lock 10 ML Syringe IV (09:11)
[2024-09-20] MEDS: Gabapentin 300 MG Capsule PO (09:11)
--- NOTE | 2024-09-20 09:20 | ADDICTION ---
clinician met with client to discuss discharge plan for today; he will be picked up by [facility] peer support and transported to [facility]. client reported no concerns and was agreeable and cooperative to enter into [facility] 3.5.
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
--- NOTE | 2024-09-20 10:29 | PHA.DC.MC.R ---
Pharmacy [facility] has performed discharge medication reconciliation and counseling for this patient. 1. ACETAMINOPHEN 1000MG PO Q8 2. IBUPROFEN 600MG PO Q8H PRN PAIN 3. MULTIVITAMIN 1T PO BREAKFAST The patient's discharge medication list was reviewed for discrepancies and discrepancies were resolved. The patient was counseled on the following discharge medications and changes in medications for homegoing were reviewed. The Reason for Use, instructions for use, and potential side effects were reviewed for all new medications. The patient's questions regarding all of their medications were answered. The patient was able to verbally demonstrate an understanding of their discharge medications. Medications at Discharge Home Medications acetaminophen 325 mg tablet 1,000 mg (3.0769 x 325 mg) PO TID #0 tabs 09/20/24 ibuprofen 600 mg tablet 600 mg PO Q8H PRN PRN Pain Score 1-10 #0 tabs 09/20/24 multivitamin (Daily Multi-Vitamin tablet) 1 tab PO DAILY #30 tabs 09/20/24
[2024-09-20 11:10] VITALS: BP 127/84; PULSE 80; RESP 18; TEMP 36.8; O2SAT 100
== END 2024-09-20 11:30 | disposition home or self-care (01) | DRG 897 ==
LOC: ED 21:03 → MS3 09-18 01:22
PROVIDERS: Admitting Provider Family Medicine; Emergency Provider Emergency Medicine
DX: F10.229 Alcohol dependence with intoxication, unspecified (principal); F14.99 Cocaine use, unspecified with unspecified cocaine-induced disorder; F10.239 Alcohol dependence with withdrawal, unspecified; E11.9 Type 2 diabetes mellitus without complications; Z59.00 Homelessness unspecified; Z66 Do not resuscitate; I10 Essential (primary) hypertension; F17.210 Nicotine dependence, cigarettes, uncomplicated; H05.30 Unspecified deformity of orbit; S42.292D Other displaced fracture of upper end of left humerus, subsequent encounter for fracture with routine healing; Y04.0XXD Assault by unarmed brawl or fight, subsequent encounter; Y90.8 Blood alcohol level of 240 mg/100 ml or more
CPT/HCPCS: 70486; 73030; 80053; 80307; 82077; 83735; 84100; 85025; 96361; 96374; 97802; 99221; 99284; 99406; A4216; G0378

== ENCOUNTER → 2024-10-03 | Outpatient (CLI) | payer MEDICAID, SELFPAY ==
--- NOTE | 2024-10-03 10:00 | RAD_ITS ---
EXAM: XR Left Shoulder Complete, 2 or More Views CLINICAL INDICATION: PAIN IN LEFT SHOULDER TECHNIQUE: Two or more views of the left shoulder. COMPARISON: No relevant prior studies available. FINDINGS: BONES/JOINTS: Status post fixation sideplate and screws through the proximal humerus. Intact hardware. Anatomic position. No acute fracture. No dislocation. SOFT TISSUES: Soft tissue swelling. RAD/Shoulder min 2 Views IMPRESSION: Postoperative changes as above. Reading Location: [facility]
== END | disposition home or self-care (01) ==
DX: M25.512 Pain in left shoulder (principal)
CPT/HCPCS: 73030

== ENCOUNTER → 2024-10-12 | Outpatient (CLI) | payer MEDICAID, SELFPAY ==
[2024-10-12 12:49] LABS: Absolute Lymphocyte Count 1.77 X10^3/uL (0.83-4.51); Absolute Neutrophil Count 3.4 X10^3/uL (2.0-7.7); Basophil# 0.07 X10^3/uL; Basophil% 1.2 % (0-1); Eosinophil# 0.13 X10^3/uL; Eosinophils% 2.2 % (0-5); Hematocrit 40.6 % (40-54); Hemoglobin 13.6 g/dL (13.0-16.5); Lymphocyte # 1.77 X10^3/ul (0.83-4.51); Lymphocyte % 29.3 % (19-41); Mean Corp Hgb Conc 33.5 g/dL (32-36); Mean Corpuscular Hgb 31.6 pg (27.0-32.0); Mean Corpuscular Volume 94.2 fL (80-94); Mean Platelet Vol. 10.1 fl (6.2-12.0); Monocyte# 0.68 X10^3/uL; Monocyte% 11.3 % (0-10); NRBC Flagged by Analyzer 0 % (0-5); Neutrophil # 3.37 X10^3/uL (2.7-7.7); Neutrophil % 55.7 % (47-70); Platelet Count 310 K/mm3 (150-450); RBC Distribution Width CV 14.9 % (11.6-14.6); RBC Distribution Width SD 51.6 fl (35.1-43.9); Red Blood Count 4.31 M/mm3 (4.6-6.2)
[2024-10-12 14:02] LABS: Cholesterol 160 mg/dL (<=200); High Density Lipoprotein 41 mg/dL; Low Density Lipoprotein Calc. 81 mg/dL; Triglycerides 188 mg/dL; Very Low Density Lipoprotein 38 mg/dL (5-40); cholesterol:hdl ratio screen 3.87
[2024-10-12 14:07] LABS: ALB/GLOB Ratio 1.8 RATIO (0.9-2.4); AST(SGOT) 27 U/L (<=37); Alanine Aminotransfer ALT/SGPT 21 U/L (<=46); Albumin, Serum 4.2 g/dL (3.5-5.0); Alkaline Phosphatase 69 U/L (40-129); Anion Gap 11 (5-15); BUN 16 mg/dL (4-19); BUN/Creat Ratio 19.7 RATIO (10-20); Calcium,Total 9.5 mg/dL (7.6-11.0); Carbon Dioxide 23.5 mmol/L (21.0-32.0); Chloride 105 mmol/L (98-108); Creatinine, Serum 0.81 mg/dL (0.70-1.20); EST Glomerular Filtration Rate 104 (>60); Globulin 2.4 g/dL (2.2-4.2); Glucose 98 mg/dL (70-99); Potassium 4.6 mmol/L (3.3-5.1); Protein, Total 6.5 g/dL (5.9-8.4); Sodium Level 140 mmol/L (133-145); Total Bilirubin < 0.15 mg/dL (0.00-1.30)
[2024-10-12 16:24] LABS: Hemoglobin A1c 5.7 % (<=5.6)
== END | disposition home or self-care (01) ==
LOC: VSLAB 09:11
DX: Z13.6 Encounter for screening for cardiovascular disorders (principal); Z13.1 Encounter for screening for diabetes mellitus; Z13.220 Encounter for screening for lipoid disorders
CPT/HCPCS: 36415; 80053; 80061; 83036; 84443; 85025

== ENCOUNTER → 2024-10-13 | Outpatient (CLI) | payer MEDICAID, SELFPAY ==
--- NOTE | 2024-10-13 11:30 | RAD_ITS ---
EXAM: Elbow two views CLINICAL HISTORY: Pain in right elbow COMPARISON: None available TECHNIQUE: Two views left elbow FINDINGS: No fracture, dislocation or joint effusion. The joint spaces appear within limits. No osseous lesion. Soft tissues appear within limits. RAD/Elbow 2 Views IMPRESSION: Study appears within limits. Reading Location: [id number]
--- NOTE | 2024-10-13 11:30 | RAD_ITS ---
EXAM: Elbow two views CLINICAL HISTORY: Pain in right elbow COMPARISON: None available TECHNIQUE: Two views FINDINGS: No fracture, dislocation or joint effusion. The joint spaces appear within limits. No osseous lesion identified. The soft tissues appear within limits. RAD/Elbow 2 Views IMPRESSION: Study appears within limits. Reading Location: [id number]
== END | disposition home or self-care (01) ==
DX: M25.521 Pain in right elbow (principal)
CPT/HCPCS: 73070

== ENCOUNTER → 2024-11-08 | Outpatient (CLI) | payer MEDICAID, SELFPAY ==
[2024-11-08 13:44] LABS: Anion Gap 11 (5-15); BUN 15 mg/dL (4-19); BUN/Creat Ratio 17.3 RATIO (10-20); Calcium,Total 9.4 mg/dL (7.6-11.0); Carbon Dioxide 23.9 mmol/L (21.0-32.0); Chloride 104 mmol/L (98-108); Creatinine, Serum 0.86 mg/dL (0.70-1.20); EST Glomerular Filtration Rate 102 (>60); Glucose 96 mg/dL (70-99); Magnesium 2.1 mg/dL (1.5-2.2); PSA,Total - Annual Screen 0.22 ng/mL (0.02-4.00); Potassium 4.7 mmol/L (3.3-5.1); Sodium Level 138 mmol/L (133-145)
== END | disposition home or self-care (01) ==
LOC: VSLAB 09:51
DX: R39.9 Unspecified symptoms and signs involving the genitourinary system (principal); R25.2 Cramp and spasm
CPT/HCPCS: 84153; 36415; 80048; 83735; G0103